=== PATIENT | female | born 1985 | race Caucasian/White ===

== ENCOUNTER 2017-04-09 13:17 | Emergency (ER) | payer OTHER ==
--- NOTE | ~2017-04-09 | ER ---
PATIENT'S NAME: NICHELLE CHANCENTERVILLE AGE: 31 Y [address] ROOM: [place] [address] LOCATION: [facility] ADMIT DATE: 04/09/2017 ER/Outpatient Report DISCHARGE DATE: 04/09/2017 FAMILY PHYSICIAN: PHYSICIAN, NO ATTENDING PHYSICIAN: Etta Rocha Time of Arrival: 1317 hours. Time of Evaluation: 1330 hours. IDENTIFICATION: A 31-year-old female. CHIEF COMPLAINT: Left third finger laceration. HISTORY OF PRESENT ILLNESS: The patient was using a bread knife to cut a box while at work at [employer], when she sustained a 1.5 cm laceration to the volar aspect of her left third finger. It is right in the area of the PIP joint. ALLERGIES: NO KNOWN DRUG ALLERGIES. CURRENT MEDICATIONS: 1. Lamictal. 2. Dian-doo-stqummm counter allergy medication. PAST MEDICAL HISTORY: Bipolar. SOCIAL HISTORY: The patient works at [employer]. Tobacco use 1 pack per day. Alcohol use, occasional. Drug use, denies. Tetanus is uncertain. REVIEW OF SYSTEMS: All systems reviewed and negative other than what is noted in the HPI. PHYSICAL EXAMINATION: VITAL SIGNS: Weight 111.8 kg, blood pressure 102/58, pulse 89, respirations 20, temperature 97.2, and saturations 96% on room air. GENERAL: A 31-year-old female, in no acute distress. EXTREMITIES: Left upper extremity neurovascularly intact. Full range of motion. Sensory exam is normal. No active bleeding. She has a 1.5 cm laceration over the volar aspect of her mid finger. PATIENT'S NAME: JOSEPH CHAN [facility] AGE: 31 Y [address] ROOM: [place] [address] LOCATION: [facility] ADMIT DATE: 04/09/2017 ER/Outpatient Report DISCHARGE DATE: 04/09/2017 FAMILY PHYSICIAN: PHYSICIAN, NO ATTENDING PHYSICIAN: Etta Rocha The area was anesthetized and draped in sterile fashion. 1% Xylocaine without epinephrine was used for local anesthesia. Three simple interrupted sutures were placed with 4-0 Ethilon. The patient tolerated the procedure well. No complications. Tetanus is boosted. IMPRESSION: Left third finger laceration. PLAN: Wound care follow up in 7 days for suture removal. Follow up sooner if any problems or concerns. The patient understands and agrees, and all questions have been answered. MD LIZETT LOPES/amaury /[id number] d: 04/10/17 0021 t: 04/15/17 1015, OUTPATIENT REPORT
== END 2017-04-09 14:02 | disposition disaster alternative care site (69) ==
LOC: GACC 13:17
PROC: 0HQGXZZ Repair Left Hand Skin, External Approach (ICD-10-PCS; principal; 2017-04-09)
DX: S61.213A Laceration without foreign body of left middle finger without damage to nail, initial encounter (principal); F31.9 Bipolar disorder, unspecified; F17.210 Nicotine dependence, cigarettes, uncomplicated; Z79.899 Other long term (current) drug therapy; Z23 Encounter for immunization; Y92.69 Other specified industrial and construction area as the place of occurrence of the external cause; W26.0XXA Contact with knife, initial encounter; Y99.0 Civilian activity done for income or pay